=== PATIENT | male | born 1950 | race Caucasian/White ===

== ENCOUNTER 2016-08-20 15:39 | Emergency (ER) | payer OTHER ==
[~2016-08-20] VITALS: Ht 185.4 cm; Wt 109.0 kg
[~2016-08-20 15:39] MED LIST: ASPIR 8181 M1 PO; ATARAX,VISTARIL25 MG PO; BENZONATATE100 MG PO; DUONEB 2.5-0.5 M3 ML AEROSOL; FORTAMET1000 M1 PO; GLIPIZIDE5 MG PO; GLUCOPHAGE500 MG PO; GUAIFENESI100 MG/5 M PO; LEVAQUIN750 MG PO; LEVOFLOXACIN750 MG PO; LISINOPRIL10 MG PO; METFORMIN HCL1000 MG PO; PREDNISONE10 MG PO; PREDNISONE20 MG PO; PREDNISONE5 MG PO; VALIUM2 MG PO
[2016-08-20 16:47] LABS: HEMATOCRIT 40.1 % (38.0-50.0); MCH 29.4 PG (29.0-34.0); MCHC 32.7 G/DL (30.0-36.0); MCV 90.1 FL (86-99); MEAN PLAT.VOLUME 10.7 uM^3 (9.0-12.4); PLATELET COUNT 212 K/uL (156-360); RBC DIS.WIDTH-CV 13.5 % (11.8-14.6); RBC DIS.WIDTH-SD 44.3 % (39-53); RED BLOOD COUNT 4.45 M/uL (4.00-5.50); WHITE BLOOD COUNT 8.6 K/uL (4.1-10.2)
[2016-08-20 17:01] LABS: CHLORIDE 105 mEq/L (99-109); POTASSIUM 5.1 mEq/L (3.7-5.4); SODIUM 138 mEq/L (136-147)
[2016-08-20 17:04] LABS: GLUCOSE 142 mg/dL (70-99)
[2016-08-20 17:05] LABS: ANION GAP 11 MEQ/L (2-14)
[2016-08-20 17:06] LABS: TOTAL BILIRUBIN 0.6 mg/dL (0.0-1.0)
[2016-08-20 17:07] LABS: ALKALINE PHOSPHATASE 66 IU/L (3-129); GFR ESTIMATE (CALCULATED) > 59 mL/min/
[2016-08-20 17:08] LABS: UREA NITROGEN (BUN) 20 mg/dL (9-23)
[2016-08-20 17:11] LABS: LIPASE 51 U/L (1.0-51.0)
[2016-08-20] MEDS ORDERED: PERCOCET 5/31 TABLET PO (17:53)
[2016-08-20] MEDS ORDERED: FLEXERIL10 MG PO (17:53)
[2016-08-20 18:38] VITALS: BP 120/80
== END 2016-08-20 18:39 | disposition home or self-care (01) ==
LOC: EME 15:39
PROVIDERS: Nurse Practitioner Family
DX: S20.211A Contusion of right front wall of thorax, initial encounter (principal); S61.211A Laceration without foreign body of left index finger without damage to nail, initial encounter; S39.011A Strain of muscle, fascia and tendon of abdomen, initial encounter; W01.198A Fall on same level from slipping, tripping and stumbling with subsequent striking against other object, initial encounter; Y93.H2 Activity, gardening and landscaping; Y92.096 Garden or yard of other non-institutional residence as the place of occurrence of the external cause; Z23 Encounter for immunization; I10 Essential (primary) hypertension; E11.9 Type 2 diabetes mellitus without complications; Z79.82 Long term (current) use of aspirin; Z87.891 Personal history of nicotine dependence
CPT/HCPCS: 71101; 71250; 73140; 74176; 80053; 81003; 83690; 85027; 99281; 99284

== ENCOUNTER 2016-10-04 20:57 | Emergency (ER) | payer OTHER ==
[~2016-10-04] VITALS: Ht 180.3 cm; Wt 118.3 kg
[~2016-10-04 20:57] MED LIST changes: +FLEXERIL10 MG PO; +PERCOCET 5/31 TABLET PO
[2016-10-04 21:33] LABS: HEMATOCRIT 42.1 % (38.0-50.0); MCH 29.7 PG (29.0-34.0); MEAN PLAT.VOLUME 10.7 uM^3 (9.0-12.4); PLATELET COUNT 184 K/uL (156-360); RBC DIS.WIDTH-CV 13.2 % (11.8-14.6); RBC DIS.WIDTH-SD 43.3 % (39-53); RED BLOOD COUNT 4.68 M/uL (4.00-5.50)
[2016-10-04 21:42] LABS: CHLORIDE 105 mEq/L (99-109); POTASSIUM 4.7 mEq/L (3.7-5.4); SODIUM 139 mEq/L (136-147)
[2016-10-04 21:43] LABS: GLUCOSE 155 mg/dL (70-99)
[2016-10-04 21:45] LABS: ANION GAP 12 MEQ/L (2-14)
[2016-10-04 21:47] LABS: GFR ESTIMATE (CALCULATED) > 59 mL/min/
[2016-10-04 21:48] LABS: UREA NITROGEN (BUN) 15 mg/dL (9-23)
[2016-10-04 21:56] LABS: TROP-I INTERPRETATION NEGATIVE; TROPONIN-I < 0.01 ng/mL (0.0-0.30)
[2016-10-04 23:07] LABS: D-DIMER ELISA 0.82 mg/L FEU (< 0.57)
[2016-10-05] MEDS ORDERED: PREDNISONE20 MG PO (01:03)
[2016-10-05] MEDS ORDERED: HYCODAN SYRUP480 ML PO (01:03)
[2016-10-05 01:21] VITALS: BP 109/54
== END 2016-10-05 01:30 | disposition home or self-care (01) ==
LOC: EME 20:57
PROVIDERS: Physician Assistant
DX: J44.0 Chronic obstructive pulmonary disease with (acute) lower respiratory infection (principal); J20.9 Acute bronchitis, unspecified; E11.9 Type 2 diabetes mellitus without complications; E78.5 Hyperlipidemia, unspecified; I10 Essential (primary) hypertension; I25.10 Atherosclerotic heart disease of native coronary artery without angina pectoris; Z79.84 Long term (current) use of oral hypoglycemic drugs; Z79.82 Long term (current) use of aspirin; Z87.891 Personal history of nicotine dependence
CPT/HCPCS: 71020; 71275; 80048; 83605; 84484; 85027; 85379; 87040; 93005; 94640; 99281; 99285; J1200; J2060; J2930; J7030

== ENCOUNTER 2016-10-11 05:13 | Inpatient (IN) | payer OTHER ==
[~2016-10-11] VITALS: Ht 182.9 cm; Wt 116.1 kg
[~2016-10-11 05:13] MED LIST changes: +HYCODAN SYRUP480 ML PO
[2016-10-11 05:54] LABS: HEMATOCRIT 43.8 % (38.0-50.0); MCH 29.8 PG (29.0-34.0); MCHC 33.1 G/DL (30.0-36.0); MCV 89.9 FL (86-99); MEAN PLAT.VOLUME 10.7 uM^3 (9.0-12.4); PLATELET COUNT 217 K/uL (156-360); RBC DIS.WIDTH-CV 13.2 % (11.8-14.6); RBC DIS.WIDTH-SD 43.8 % (39-53); RED BLOOD COUNT 4.87 M/uL (4.00-5.50); WHITE BLOOD COUNT 9.9 K/uL (4.1-10.2)
[2016-10-11 05:57] LABS: CHLORIDE 107 mEq/L (99-109); POTASSIUM 4.8 mEq/L (3.7-5.4); SODIUM 139 mEq/L (136-147)
[2016-10-11 05:58] LABS: GLUCOSE 172 mg/dL (70-99)
[2016-10-11 06:00] LABS: ANION GAP 12 MEQ/L (2-14)
[2016-10-11 06:02] LABS: GFR ESTIMATE (CALCULATED) > 59 mL/min/
[2016-10-11 06:03] LABS: UREA NITROGEN (BUN) 18 mg/dL (9-23)
[2016-10-11 06:07] LABS: TROP-I INTERPRETATION NEGATIVE; TROPONIN-I < 0.01 ng/mL (0.0-0.30)
[2016-10-11 06:19] LABS: TOTAL BILIRUBIN 1.2 mg/dL (0.0-1.0)
[2016-10-11 06:20] LABS: ALKALINE PHOSPHATASE 73 IU/L (3-129)
[2016-10-11 06:22] LABS: DIRECT BILIRUBIN 0.4 mg/dL (0.0-0.3)
[2016-10-11 06:23] LABS: LIPASE 38 U/L (1.0-51.0)
[2016-10-11] MEDS ORDERED: GLIPIZIDE XL5 MG PO (08:40)
[2016-10-11] MEDS ORDERED: ATORVASTATIN CA20 MG PO (08:41)
[2016-10-11] MEDS ORDERED: DOXYCYCLINE HY100 M3 PO (08:41)
[2016-10-11] MEDS ORDERED: ALBUTEROL2.5 MG/3 M IH (08:41)
[2016-10-11] MEDS ORDERED: ESCITALOPRAM OX10 MG PO (08:42)
[2016-10-11 09:50] VITALS: BP 115/77
[2016-10-11 12:18] LABS: POINT-OF-CARE METER ID UU14162508
[2016-10-11 15:49] VITALS: BP 130/61
[2016-10-11 16:11] LABS: POINT-OF-CARE METER ID UU14162508
[2016-10-11 22:24] VITALS: BP 135/70
[2016-10-11 22:25] LABS: POINT-OF-CARE METER ID UU14162508
[2016-10-12 02:12] VITALS: BP 141/74
[2016-10-12 05:57] VITALS: BP 32/60
[2016-10-12 06:57] LABS: POINT-OF-CARE METER ID UU14162508
[2016-10-12 07:07] LABS: EOSINOPHIL (%) 0 % (0-5); IMMATURE GRANULOCYTE (%) 1.3 % (0.0-0.7); IMMATURE GRANULOCYTE COUNT 0.2 K/uL; INSTRUMENT ABS NEUTROPHIL CT 11.1 K/uL; LYMPHOCYTE COUNT 0.5 K/uL (1.0-2.8); MCH 30.5 PG (29.0-34.0); MCHC 33.6 G/DL (30.0-36.0); MCV 90.7 FL (86-99); MEAN PLAT.VOLUME 10.8 uM^3 (9.0-12.4); MONOCYTE (%) 4.2 % (3-12); MONOCYTE COUNT 0.5 K/uL (0-0.8); NEUTROPHIL (%) 90.1 % (45-76); NEUTROPHIL COUNT 11.1 K/uL (1.8-6.4); PLATELET COUNT 205 K/uL (156-360); RBC DIS.WIDTH-CV 13.5 % (11.8-14.6); RBC DIS.WIDTH-SD 44.1 % (39-53); WHITE BLOOD COUNT 12.3 K/uL (4.1-10.2)
[2016-10-12 07:36] VITALS: BP 124/58
[2016-10-12 07:38] LABS: ALKALINE PHOSPHATASE 59 IU/L (3-129); ANION GAP 10 MEQ/L (2-14); CHLORIDE 103 MEQ/L (99-109); GFR ESTIMATE (CALCULATED) > 59 mL/min/; GLUCOSE 250 mg/dL (70-99); POTASSIUM 4.4 MEQ/L (3.7-5.4); SAMPLE HEMOLYSIS CHECK 0; SAMPLE ICTERIC CHECK 0; SAMPLE LIPEMIA CHECK 0; SODIUM 137 MEQ/L (136-147); TOTAL BILIRUBIN 0.8 MG/DL (0.0-1.0); UREA NITROGEN (BUN) 17 mg/dL (9-23)
[2016-10-12 11:24] VITALS: BP 97/55
[2016-10-12 11:52] LABS: POINT-OF-CARE METER ID UU14162508
[2016-10-12 16:12] VITALS: BP 116/55
[2016-10-12 16:25] LABS: POINT-OF-CARE METER ID UU14162508
[2016-10-12 21:44] LABS: POINT-OF-CARE USER ID 609231305
[2016-10-13] VITALS (7 sets, daily range): BP systolic 111–165; BP diastolic 55–69
[2016-10-13 05:57] LABS: EOSINOPHIL (%) 0 % (0-5); HEMATOCRIT 38.3 % (38.0-50.0); IMMATURE GRANULOCYTE (%) 1.6 % (0.0-0.7); IMMATURE GRANULOCYTE COUNT 0.2 K/uL; INSTRUMENT ABS NEUTROPHIL CT 12.7 K/uL; LYMPHOCYTE COUNT 0.3 K/uL (1.0-2.8); MCHC 32.6 G/DL (30.0-36.0); MCV 92.1 FL (86-99); MONOCYTE (%) 3.7 % (3-12); MONOCYTE COUNT 0.5 K/uL (0-0.8); NEUTROPHIL (%) 92.4 % (45-76); NEUTROPHIL COUNT 12.7 K/uL (1.8-6.4); PLATELET COUNT 204 K/uL (156-360); RBC DIS.WIDTH-CV 14.1 % (11.8-14.6); RBC DIS.WIDTH-SD 47.8 % (39-53); RED BLOOD COUNT 4.16 M/uL (4.00-5.50); WHITE BLOOD COUNT 13.8 K/uL (4.1-10.2)
[2016-10-13 06:25] LABS: ALKALINE PHOSPHATASE 66 IU/L (3-129); ANION GAP 11 MEQ/L (2-14); CHLORIDE 103 MEQ/L (99-109); GFR ESTIMATE (CALCULATED) > 59 mL/min/; GLUCOSE 344 mg/dL (70-99); POTASSIUM 4.7 MEQ/L (3.7-5.4); SAMPLE HEMOLYSIS CHECK 0; SAMPLE ICTERIC CHECK 0; SAMPLE LIPEMIA CHECK 0; SODIUM 135 MEQ/L (136-147)
[2016-10-13 06:28] LABS: TOTAL BILIRUBIN 0.6 MG/DL (0.0-1.0); UREA NITROGEN (BUN) 32 mg/dL (9-23)
[2016-10-14 03:49] VITALS: BP 136/62
[2016-10-14 07:15] VITALS: BP 124/59
[2016-10-14 07:15] LABS: Estimated Average Glucose 192 mg/dL (70-123); HEMOGLOBIN A1c (GLYCOHEMOGLOB) 8.3 % HGB (Below 5.7)
[2016-10-14 07:17] LABS: EOSINOPHIL (%) 0 % (0-5); HEMATOCRIT 38.9 % (38.0-50.0); IMMATURE GRANULOCYTE (%) 1.2 % (0.0-0.7); IMMATURE GRANULOCYTE COUNT 0.1 K/uL; INSTRUMENT ABS NEUTROPHIL CT 11.1 K/uL; LYMPHOCYTE COUNT 0.4 K/uL (1.0-2.8); MCH 29.6 PG (29.0-34.0); MCHC 31.9 G/DL (30.0-36.0); MCV 92.8 FL (86-99); MEAN PLAT.VOLUME 11.2 uM^3 (9.0-12.4); MONOCYTE (%) 4.5 % (3-12); MONOCYTE COUNT 0.5 K/uL (0-0.8); NEUTROPHIL (%) 91.3 % (45-76); NEUTROPHIL COUNT 11.1 K/uL (1.8-6.4); PLATELET COUNT 195 K/uL (156-360); RBC DIS.WIDTH-CV 13.8 % (11.8-14.6); RBC DIS.WIDTH-SD 46.7 % (39-53); RED BLOOD COUNT 4.19 M/uL (4.00-5.50); WHITE BLOOD COUNT 12.1 K/uL (4.1-10.2)
[2016-10-14 07:44] LABS: ALKALINE PHOSPHATASE 71 IU/L (3-129); ANION GAP 14 MEQ/L (2-14); CHLORIDE 101 MEQ/L (99-109); GFR ESTIMATE (CALCULATED) > 59 mL/min/; GLUCOSE 329 mg/dL (70-99); POTASSIUM 4.7 MEQ/L (3.7-5.4); SAMPLE HEMOLYSIS CHECK 0; SAMPLE ICTERIC CHECK 0; SAMPLE LIPEMIA CHECK 0; SODIUM 135 MEQ/L (136-147); TOTAL BILIRUBIN 0.7 MG/DL (0.0-1.0); UREA NITROGEN (BUN) 31 mg/dL (9-23)
[2016-10-14 11:15] VITALS: BP 148/89
[2016-10-14 11:26] LABS: POINT-OF-CARE METER ID UU14162508
[2016-10-14 12:36] LABS: TROP-I INTERPRETATION NEGATIVE; TROPONIN-I 0.08 ng/mL (0.0-0.30)
[2016-10-14 15:24] VITALS: BP 122/58
[2016-10-14 17:56] LABS: TROP-I INTERPRETATION NEGATIVE; TROPONIN-I 0.09 ng/mL (0.0-0.30)
[2016-10-14 22:09] LABS: POINT-OF-CARE METER ID UU14162508
[2016-10-14 23:27] VITALS: BP 137/61
[2016-10-15 00:10] LABS: TROP-I INTERPRETATION NEGATIVE; TROPONIN-I 0.06 ng/mL (0.0-0.30)
[2016-10-15 06:40] LABS: POINT-OF-CARE METER ID UU14162508
[2016-10-15 07:29] LABS: HEMATOCRIT 37.9 % (38.0-50.0); MCH 30.5 PG (29.0-34.0); MCV 92.4 FL (86-99); MEAN PLAT.VOLUME 10.8 uM^3 (9.0-12.4); PLATELET COUNT 167 K/uL (156-360); RBC DIS.WIDTH-CV 13.7 % (11.8-14.6); RBC DIS.WIDTH-SD 46.8 % (39-53); WHITE BLOOD COUNT 9.4 K/uL (4.1-10.2)
[2016-10-15 07:38] VITALS: BP 130/71
[2016-10-15 08:02] LABS: ANION GAP 9 MEQ/L (2-14); CHLORIDE 100 MEQ/L (99-109); GFR ESTIMATE (CALCULATED) > 59 mL/min/; GLUCOSE 275 mg/dL (70-99); SAMPLE HEMOLYSIS CHECK 0; SAMPLE ICTERIC CHECK 0; SAMPLE LIPEMIA CHECK 0; SODIUM 133 MEQ/L (136-147); UREA NITROGEN (BUN) 26 mg/dL (9-23)
[2016-10-15 08:05] LABS: POTASSIUM 5.9 MEQ/L (3.7-5.4)
[2016-10-15 11:43] LABS: POINT-OF-CARE METER ID UU14162508
[2016-10-15 15:47] VITALS: BP 155/73
[2016-10-15 16:45] LABS: POINT-OF-CARE METER ID UU14162508
[2016-10-15] MEDS ORDERED: ESCITALOPRAM OX10 MG PO (17:53)
[2016-10-15] MEDS ORDERED: MILK OF MAGNESI10 ML PO (17:54)
[2016-10-15] MEDS ORDERED: FAMOTIDINE40 MG PO (17:55)
[2016-10-15] MEDS ORDERED: PREDNISONE20 MG PO (17:57)
[2016-10-15] MEDS ORDERED: ALPRAZOLAM0.25 M2 PO (17:58)
[2016-10-15] MEDS ORDERED: Ocean Nasal 0.65% BOTH NARES (17:58)
[2016-10-15] MEDS ORDERED: Robitussin AC,Tussi- PO (17:58)
[2016-10-15] MEDS ORDERED: TESSALON PERLE100 MG PO (17:59)
[2016-10-15] MEDS ORDERED: TYLENOL WITH C1 EACH PO (18:00)
== END 2016-10-15 19:05 | disposition home or self-care (01) | DRG 189 ==
LOC: EME 05:13 → EDOF 07:24 → 2EASTP 07:24
PROVIDERS: Hospitalist
DX: J96.01 Acute respiratory failure with hypoxia (principal); J20.9 Acute bronchitis, unspecified; I11.0 Hypertensive heart disease with heart failure; E11.9 Type 2 diabetes mellitus without complications; I50.9 Heart failure, unspecified; F41.0 Panic disorder [episodic paroxysmal anxiety]; Z87.891 Personal history of nicotine dependence; E78.5 Hyperlipidemia, unspecified; Z68.34 Body mass index [BMI] 34.0-34.9, adult; E66.9 Obesity, unspecified; J44.0 Chronic obstructive pulmonary disease with (acute) lower respiratory infection
CPT/HCPCS: 71010; 80048; 80053; 80076; 82948; 83036; 83605; 83690; 83880; 84484; 85025; 85027; 87040; 93005; 94010; 94640; 94640 76; 94667; 94668; 94799; 99202; 99281; 99285; J0456; J0696; J1650; J1815; J2920; J2930; J7050; J7512

== ENCOUNTER 2017-06-16 01:08 | Emergency (ER) | payer OTHER ==
[~2017-06-16] VITALS: Ht 182.9 cm; Wt 113.6 kg
[~2017-06-16 01:08] MED LIST changes: +ALBUTEROL2.5 MG/3 M IH; +ALPRAZOLAM0.25 M2 PO; +ATORVASTATIN CA20 MG PO; +DOXYCYCLINE HY100 M3 PO; +ESCITALOPRAM OX10 MG PO; +FAMOTIDINE40 MG PO; +GLIPIZIDE XL5 MG PO; +MILK OF MAGNESI10 ML PO; +Ocean Nasal 0.65% BOTH NARES; +Robitussin AC,Tussi- PO; +TESSALON PERLE100 MG PO; +TYLENOL WITH C1 EACH PO
[2017-06-16] MEDS ORDERED: FLEXERIL10 MG PO (03:04)
[2017-06-16] MEDS ORDERED: MEDROL DOSEPAK4 MG PO (03:04)
[2017-06-16] MEDS ORDERED: NAPROSYN500 MG PO (03:04)
[2017-06-16 03:23] VITALS: BP 111/62
== END 2017-06-16 03:24 | disposition home or self-care (01) ==
LOC: EME 01:08
DX: M54.40 Lumbago with sciatica, unspecified side (principal); I11.0 Hypertensive heart disease with heart failure; I50.9 Heart failure, unspecified; E78.5 Hyperlipidemia, unspecified; E11.9 Type 2 diabetes mellitus without complications; J44.9 Chronic obstructive pulmonary disease, unspecified; I25.10 Atherosclerotic heart disease of native coronary artery without angina pectoris; F41.9 Anxiety disorder, unspecified; Z79.82 Long term (current) use of aspirin; Z79.84 Long term (current) use of oral hypoglycemic drugs; Z87.891 Personal history of nicotine dependence; Z87.01 Personal history of pneumonia (recurrent)
CPT/HCPCS: 93005; 99281; 99284; J1100; J1885; J2270

== ENCOUNTER 2017-10-08 23:39 | Emergency (ER) | payer OTHER ==
[~2017-10-08] VITALS: Ht 172.7 cm; Wt 109.1 kg
[~2017-10-08 23:39] MED LIST changes: +MEDROL DOSEPAK4 MG PO; +NAPROSYN500 MG PO
[2017-10-09 00:31] LABS: HEMATOCRIT 37.8 % (38.0-50.0); HEMOGLOBIN 12.5 G/DL (12.5-16.6); MCH 29.9 PG (29.0-34.0); MCHC 33.1 G/DL (30.0-36.0); MCV 90.4 FL (86-99); PLATELET COUNT 166 K/uL (156-360); RBC DIS.WIDTH-CV 13.2 % (11.8-14.6); RBC DIS.WIDTH-SD 43.8 % (39-53); RED BLOOD COUNT 4.18 M/uL (4.00-5.50); WHITE BLOOD COUNT 6.9 K/uL (4.1-10.2)
[2017-10-09 00:43] LABS: CHLORIDE 104 mEq/L (99-109); POTASSIUM 4.4 mEq/L (3.7-5.4); SODIUM 139 mEq/L (136-147)
[2017-10-09 00:45] LABS: GLUCOSE 141 mg/dL (70-99)
[2017-10-09 00:49] LABS: CREATININE 0.9 mg/dL (0.6-1.3); GFR ESTIMATE (CALCULATED) > 59 mL/min/ (58.99-99999)
[2017-10-09 00:50] LABS: UREA NITROGEN (BUN) 13 mg/dL (9-23)
[2017-10-09 00:56] LABS: TROP-I INTERPRETATION NEGATIVE; TROPONIN-I < 0.01 ng/mL (0.0-0.30)
[2017-10-09] MEDS ORDERED: ROBITUSSIN AC,T10 ML PO (04:35)
[2017-10-09 05:39] VITALS: BP 120/60
== END 2017-10-09 05:40 | disposition home or self-care (01) ==
LOC: EME 23:39
DX: B34.9 Viral infection, unspecified (principal); R05 Cough; J44.9 Chronic obstructive pulmonary disease, unspecified; I11.0 Hypertensive heart disease with heart failure; I50.9 Heart failure, unspecified; E78.5 Hyperlipidemia, unspecified; E11.9 Type 2 diabetes mellitus without complications; Z79.84 Long term (current) use of oral hypoglycemic drugs; Z79.82 Long term (current) use of aspirin; Z87.891 Personal history of nicotine dependence
CPT/HCPCS: 71046; 80048; 84484; 85027; 93005; 94640; 99281; 99284